=== PATIENT | male | born 1985 | race Two or more races ===

== ENCOUNTER 2021-11-28 08:49 | Inpatient (IN) | payer MEDICAID ==
[~2021-11-28] VITALS: Ht 170.2 cm; Wt 86.6 kg
[2021-11-28 09:38] LABS: BASOPHILS % (AUTO) 0.4 % (0.0-2.0); EOSINOPHILS % (AUTO) 0.2 % (1.0-6.0); HEMATOCRIT 38.8 % (41-53); HEMOGLOBIN 13.1 g/dL (13.5-17.5); LYMPHOCYTES # (AUTO) 1.3 K/uL (1.0-4.8); LYMPHOCYTES % (AUTO) 16.9 % (22.0-44.0); MEAN CORPUSCULAR HEMOGLOBIN 29.3 pg (26.0-34.0); MEAN CORPUSCULAR HGB CONC 33.8 G/dL (31.0-37.0); MEAN CORPUSCULAR VOLUME 87 fL (80-100); MONOCYTES # (AUTO) 0.6 K/uL (0.1-1.0); MONOCYTES % (AUTO) 7.8 % (2.0-9.0); NEUTROPHILS # (AUTO) 5.8 K/uL (1.8-7.7); NEUTROPHILS % (AUTO) 74.7 % (40.0-70.0); PLATELET COUNT (AUTO) 257 K/uL (150-450); RED BLOOD CELL COUNT(AUTO) 4.48 MIL/uL (4.50-5.90); RED CELL DISTRIBUTION WIDTH 15.2 % (11.5-14.5)
[2021-11-28 09:47] LABS: ANION GAP 7 mmol/L (8-16); CALCIUM, TOTAL 8.8 mg/dL (8.8-10.5); CARBON DIOXIDE 28 mmol/L (22-29); CHLORIDE 105 mmol/L (98-107); CREATININE 0.75 mg/dL (0.60-1.30); GLOMERULAR FILTR. RATE CALC > 60 mL/min (>60); GLUCOSE,RANDOM 115 mg/dL (70-110); POTASSIUM 3.6 mmol/L (3.5-5.1); SODIUM SERUM 140 mmol/L (136-145); UREA NITROGEN, BLOOD 14 mg/dL (7-18)
[2021-11-28 09:53] LABS: ALANINE AMINOTRANSFERASE 42 U/L (12-78); ALBUMIN 4.1 g/dL (3.4-5.0); ALKALINE PHOSPHATASE 51 U/L (46-116); ASPARTATE AMINOTRANSFERASE 35 U/L (15-37); BILIRUBIN,TOTAL 0.5 mg/dL (0.1-1.0)
[2021-11-28 10:35] LABS: AMPHET/METH SCREEN,URINE NEGATIVE (NEGATIVE); BARBITURATE SCREEN, URINE NEGATIVE (NEGATIVE); BENZODIAZEPINES SCREEN,URINE NEGATIVE (NEGATIVE); CANNABINOID SCREEN,URINE NEGATIVE (NEGATIVE); COCAINE SCREEN,URINE NEGATIVE (NEGATIVE); METHADONE SCREEN, URINE NEGATIVE (NEGATIVE); OPIATE SCREEN,URINE NEGATIVE (NEGATIVE); PHENCYCLIDINE SCREEN,URINE NEGATIVE (NEGATIVE)
[2021-11-28] MEDS ORDERED: LORazepam 2 MG TABLET PO PRN (11:15)
[2021-11-28] MEDS ORDERED: ZOLPIDEM TARTRATE 10 MG TABLET PO PRN (11:15)
[2021-11-28] MEDS ORDERED: HALOPERIDOL 5 MG TABLET PO PRN (11:15)
[2021-11-28 11:34] LABS: COVID AG,FIA SOURCE NASAL SWAB
[2021-11-28 14:34] VITALS: BP 148/88
[2021-11-28 16:35] VITALS: BP 108/78
[2021-11-29 00:42] VITALS: BP 139/79
[2021-11-29 08:10] VITALS: BP 120/71
[2021-11-29] MEDS: NICOTINE 21 MG/24 HOUR PATCH TD SCH (08:46)
[2021-11-29] MEDS ORDERED: MAGNESIUM HYDROXIDE SUSPENSION 30 ML UDCUP PO PRN (11:45)
[2021-11-29] MEDS ORDERED: LOPERAMIDE HCL 2 MG CAPSULE PO PRN (11:45)
[2021-11-29] MEDS ORDERED: IBUPROFEN 600 MG TABLET PO PRN (11:45)
[2021-11-29] MEDS ORDERED: ALBUTEROL SULFATE HFA 90 MCG/PUFF 8 GM INHALER IH PRN (11:45)
[2021-11-29] MEDS ORDERED: PETROLATUM,WHITE 28 GM JELLY TP PRN (11:45)
[2021-11-29] MEDS ORDERED: BENZOCAINE/MENTHOL LOZENGE PO PRN (11:45)
[2021-11-29] MEDS ORDERED: ONDANSETRON HCL 4 MG TABLET PO PRN (11:45)
[2021-11-29] MEDS ORDERED: MAG HYDROX/AL HYDROX/SIMETH ES 30 ML SUSPENSION UDCUP PO PRN (11:45)
[2021-11-29] MEDS ORDERED: BACITRACIN 28 GM OINTMENT TP PRN (11:45)
[2021-11-29] MEDS ORDERED: CloNIDine HCL 0.1 MG TABLET PO PRN (11:45)
[2021-11-29] MEDS ORDERED: ACETAMINOPHEN 325 MG TABLET PO PRN (11:45)
[2021-11-29 17:26] VITALS: BP 125/69
[2021-11-29] MEDS: LITHIUM CARBONATE 300 MG CAPSULE PO SCH (20:38)
[2021-11-29] MEDS: DIVALPROEX SODIUM 500 MG DR TABLET PO SCH (20:38)
[2021-11-29] MEDS ORDERED: OLANZapine 10 MG TABLET PO SCH (21:00)
[2021-11-30 06:10] VITALS: BP 138/68
[2021-11-30 08:25] VITALS: BP 128/73
[2021-11-30] MEDS: DIVALPROEX SODIUM 500 MG DR TABLET PO SCH ×2 (08:28→20:20)
[2021-11-30] MEDS: LITHIUM CARBONATE 300 MG CAPSULE PO SCH ×2 (08:28→20:20)
[2021-11-30] MEDS: DOCUSATE SODIUM 100 MG CAPSULE PO SCH (08:29)
[2021-11-30] MEDS: NICOTINE 21 MG/24 HOUR PATCH TD SCH (08:29)
[2021-11-30] MEDS: OMEPRAZOLE 20 MG CAPSULE PO SCH (08:29)
[2021-11-30 18:03] VITALS: BP 114/91
[2021-11-30] MEDS: OLANZapine 7.5 MG TABLET PO SCH (20:21)
[2021-12-01 06:41] VITALS: BP 104/62
[2021-12-01 08:04] VITALS: BP 141/75
[2021-12-01] MEDS: DOCUSATE SODIUM 100 MG CAPSULE PO SCH (08:55)
[2021-12-01] MEDS: DIVALPROEX SODIUM 500 MG DR TABLET PO SCH ×2 (08:55→20:14)
[2021-12-01] MEDS: OMEPRAZOLE 20 MG CAPSULE PO SCH (08:55)
[2021-12-01] MEDS: LITHIUM CARBONATE 300 MG CAPSULE PO SCH ×2 (08:55→20:14)
[2021-12-01] MEDS: NICOTINE 21 MG/24 HOUR PATCH TD SCH (08:56)
[2021-12-01 16:20] VITALS: BP 124/79
[2021-12-01] MEDS: OLANZapine 7.5 MG TABLET PO SCH (20:14)
[2021-12-02 00:29] VITALS: BP 118/72
[2021-12-02] MEDS: LITHIUM CARBONATE 300 MG CAPSULE PO SCH ×2 (08:12→20:09)
[2021-12-02] MEDS: DIVALPROEX SODIUM 500 MG DR TABLET PO SCH ×2 (08:13→20:09)
[2021-12-02] MEDS: DOCUSATE SODIUM 100 MG CAPSULE PO SCH (08:13)
[2021-12-02] MEDS: OMEPRAZOLE 20 MG CAPSULE PO SCH (08:13)
[2021-12-02] MEDS: NICOTINE 21 MG/24 HOUR PATCH TD SCH (08:13)
[2021-12-02 08:38] VITALS: BP 128/79
[2021-12-02 16:09] VITALS: BP 127/75
[2021-12-02] MEDS: OLANZapine 10 MG TABLET PO SCH (20:09)
[2021-12-03 01:13] VITALS: BP 122/73
[2021-12-03 08:11] VITALS: BP 126/80
[2021-12-03] MEDS: LITHIUM CARBONATE 300 MG CAPSULE PO SCH ×2 (08:40→20:26)
[2021-12-03] MEDS: DIVALPROEX SODIUM 500 MG DR TABLET PO SCH ×2 (08:40→20:26)
[2021-12-03] MEDS: OMEPRAZOLE 20 MG CAPSULE PO SCH (08:40)
[2021-12-03] MEDS: NICOTINE 21 MG/24 HOUR PATCH TD SCH (08:40)
[2021-12-03] MEDS: DOCUSATE SODIUM 100 MG CAPSULE PO SCH (08:40)
[2021-12-03 16:26] VITALS: BP 102/67
[2021-12-03] MEDS: OLANZapine 10 MG TABLET PO SCH (20:26)
[2021-12-04 00:27] VITALS: BP 128/71
[2021-12-04 07:12] LABS: LITHIUM 0.46 mmol/L (0.60-1.20)
[2021-12-04] MEDS: OMEPRAZOLE 20 MG CAPSULE PO SCH (08:39)
[2021-12-04] MEDS: DOCUSATE SODIUM 100 MG CAPSULE PO SCH (08:39)
[2021-12-04] MEDS: LITHIUM CARBONATE 300 MG CAPSULE PO SCH ×2 (08:39→20:33)
[2021-12-04] MEDS: NICOTINE 21 MG/24 HOUR PATCH TD SCH (08:39)
[2021-12-04] MEDS: DIVALPROEX SODIUM 500 MG DR TABLET PO SCH ×2 (08:39→20:33)
[2021-12-04 08:46] VITALS: BP 128/74
[2021-12-04 16:13] VITALS: BP 112/68
[2021-12-04] MEDS: OLANZapine 10 MG TABLET PO SCH (20:34)
[2021-12-05 00:26] VITALS: BP 110/70
[2021-12-05 08:14] VITALS: BP 132/79
[2021-12-05] MEDS: NICOTINE 21 MG/24 HOUR PATCH TD SCH (08:27)
[2021-12-05] MEDS: DOCUSATE SODIUM 100 MG CAPSULE PO SCH (08:27)
[2021-12-05] MEDS: DIVALPROEX SODIUM 500 MG DR TABLET PO SCH ×2 (08:27→20:31)
[2021-12-05] MEDS: OMEPRAZOLE 20 MG CAPSULE PO SCH (08:27)
[2021-12-05] MEDS: LITHIUM CARBONATE 300 MG CAPSULE PO SCH ×2 (08:27→20:31)
[2021-12-05 08:41] LABS: GLUCOMETER DEV NAME(LOC) POC.BV
[2021-12-05 16:18] VITALS: BP 117/74
[2021-12-05] MEDS: OLANZapine 10 MG TABLET PO SCH (20:31)
[2021-12-06 00:49] VITALS: BP 113/72
[2021-12-06 07:24] LABS: APPEARANCE,URINE CLEAR (CLEAR); BILIRUBIN,URINE NEGATIVE (NEGATIVE); GLUCOSE, URINE (UA) NEGATIVE (NEGATIVE); KETONES,URINE NEGATIVE (NEGATIVE); LEUKOCYTE ESTERASE ,URINE NEGATIVE (NEGATIVE); NITRATE,URINE NEGATIVE (NEGATIVE); OCCULT BLOOD,URINE NEGATIVE (NEGATIVE); PH,URINE 6.5 (5.0-8.0); PROTEIN,URINE NEGATIVE (NEGATIVE); SPECIFIC GRAVITIY, URINE 1.007 (1.003-1.030); UROBILINOGEN,URINE <=1.0 mg/dL (<=1.0)
[2021-12-06 08:21] VITALS: BP 119/80
[2021-12-06] MEDS: NICOTINE 21 MG/24 HOUR PATCH TD SCH (08:34)
[2021-12-06] MEDS: DIVALPROEX SODIUM 500 MG DR TABLET PO SCH ×2 (08:35→20:37)
[2021-12-06] MEDS: OMEPRAZOLE 20 MG CAPSULE PO SCH (08:35)
[2021-12-06] MEDS: LITHIUM CARBONATE 300 MG CAPSULE PO SCH ×2 (08:35→20:37)
[2021-12-06] MEDS: DOCUSATE SODIUM 100 MG CAPSULE PO SCH (08:35)
[2021-12-06 16:15] VITALS: BP 110/61
[2021-12-06] MEDS: OLANZapine 10 MG TABLET PO SCH (20:36)
[2021-12-07 00:36] VITALS: BP 112/62
[2021-12-07 08:21] VITALS: BP 117/69
[2021-12-07] MEDS: DIVALPROEX SODIUM 500 MG DR TABLET PO SCH ×2 (08:26→20:33)
[2021-12-07] MEDS: LITHIUM CARBONATE 300 MG CAPSULE PO SCH ×2 (08:26→20:33)
[2021-12-07] MEDS: OMEPRAZOLE 20 MG CAPSULE PO SCH (08:26)
[2021-12-07] MEDS: NICOTINE 21 MG/24 HOUR PATCH TD SCH (08:27)
[2021-12-07] MEDS: DOCUSATE SODIUM 100 MG CAPSULE PO SCH (08:27)
[2021-12-07 16:14] VITALS: BP 130/82
[2021-12-07] MEDS: OLANZapine 10 MG TABLET PO SCH (20:33)
[2021-12-08 00:15] VITALS: BP 124/80
[2021-12-08] MEDS: DIVALPROEX SODIUM 500 MG DR TABLET PO SCH ×2 (08:01→20:05)
[2021-12-08] MEDS: LITHIUM CARBONATE 300 MG CAPSULE PO SCH ×2 (08:01→20:05)
[2021-12-08] MEDS: OMEPRAZOLE 20 MG CAPSULE PO SCH (08:01)
[2021-12-08] MEDS: DOCUSATE SODIUM 100 MG CAPSULE PO SCH (08:01)
[2021-12-08] MEDS: NICOTINE 21 MG/24 HOUR PATCH TD SCH (08:02)
[2021-12-08 08:19] VITALS: BP 126/68
[2021-12-08 16:14] VITALS: BP 128/82
[2021-12-08] MEDS: OLANZapine 10 MG TABLET PO SCH (20:05)
[2021-12-09 00:38] VITALS: BP 107/67
[2021-12-09 08:09] VITALS: BP 117/67
[2021-12-09] MEDS: OMEPRAZOLE 20 MG CAPSULE PO SCH (08:16)
[2021-12-09] MEDS: NICOTINE 21 MG/24 HOUR PATCH TD SCH (08:16)
[2021-12-09] MEDS: DIVALPROEX SODIUM 500 MG DR TABLET PO SCH ×2 (08:16→20:35)
[2021-12-09] MEDS: LITHIUM CARBONATE 300 MG CAPSULE PO SCH ×2 (08:16→20:35)
[2021-12-09] MEDS: DOCUSATE SODIUM 100 MG CAPSULE PO SCH (08:16)
[2021-12-09 16:18] VITALS: BP 121/73
[2021-12-09] MEDS: OLANZapine 10 MG TABLET PO SCH (20:35)
[2021-12-10 00:31] VITALS: BP 123/74
[2021-12-10] MEDS ORDERED: OLAN10 PO (01:52)
[2021-12-10] MEDS ORDERED: LITH300C3 PO (01:52)
[2021-12-10] MEDS ORDERED: DIVA-112 PO (01:52)
[2021-12-10] MEDS: DIVALPROEX SODIUM 500 MG DR TABLET PO SCH (08:26)
[2021-12-10] MEDS: NICOTINE 21 MG/24 HOUR PATCH TD SCH (08:26)
[2021-12-10] MEDS: LITHIUM CARBONATE 300 MG CAPSULE PO SCH (08:26)
[2021-12-10] MEDS: OMEPRAZOLE 20 MG CAPSULE PO SCH (08:26)
[2021-12-10] MEDS: DOCUSATE SODIUM 100 MG CAPSULE PO SCH (08:26)
[2021-12-10 08:53] VITALS: BP 121/66
== END 2021-12-10 11:40 | disposition home or self-care (01) | DRG 750 ==
LOC: EMS 08:49 → B2S 11:47
PROVIDERS: ADMIT Psychiatry & Neurology Psychiatry; ATTEND Psychiatry & Neurology Psychiatry
DX: F20.9 Schizophrenia, unspecified (principal); Z59.00 Homelessness unspecified; E78.5 Hyperlipidemia, unspecified; I10 Essential (primary) hypertension; F41.9 Anxiety disorder, unspecified; F17.210 Nicotine dependence, cigarettes, uncomplicated; Z20.822 Contact with and (suspected) exposure to COVID-19; G47.00 Insomnia, unspecified; K59.00 Constipation, unspecified; Z72.89 Other problems related to lifestyle; Z71.6 Tobacco abuse counseling
CPT/HCPCS: 80053; 80164; 80178; 81003; 85025; 99285; G0480